=== PATIENT | female | born 1970 | race Caucasian/White ===

== ENCOUNTER 2019-05-13 19:28 | Emergency (ER) | payer MEDICAID ==
--- NOTE | 2019-05-13 20:20 | EDM.PDOC ---
ED HPI GENERAL MEDICAL PROBLEM - General Chief Complaint: Cardiovascular Problem Stated Complaint: PALPITATION,PASS OUT Time Seen by Provider: 05/13/19 20:15 Source of Information: Reports: Patient History Limitations: Reports: No Limitations - History of Present Illness INITIAL COMMENTS - FREE TEXT/NARRATIVE: 49 yo female who has had palpitations for 2 weeks or so. She saw Gael Penaloza who ordered a 48 hr monitor. Today, while seated,she experienced a syncopal event for 30 min,unwitnessed,prompting her to come in. Last week,the palpitations were associated with chest pain,and headache,but not this week. She has anxiety, depression and DM. Nol fever chills,no GI or urinary symptoms. - Related Data Allergies Allergy/AdvReac Type Severity Reaction Status Date / Time codeine Allergy Hives Verified 05/13/19 19:45 hydrocodone bitartrate Allergy Anaphylactic Verified 05/13/19 19:45 [From Lorcet ] Shock Tetanus Vaccines and Toxoid Allergy Cannot Verified 05/13/19 19:45 [Tetanus Vaccines & Toxoid] Remember Home Meds: Home Meds Citalopram [Citalopram HBr] 20 mg PO DAILY 05/13/19 [History] Gabapentin [Neurontin] 300 mg PO 08,12 05/13/19 [History] Gabapentin [Neurontin] 600 mg PO BEDTIME 05/13/19 [History] Insulin Glargine,Hum.Rec.Anlog [Basaglar Kwikpen U-100] 30 unit SQ DAILY [History] Mometasone/Formoterol [Dulera 200 MCG/5 MCG] 2 puff INH BID 05/13/19 [History] Orphenadrine [Norflex] 1 tab PO DAILY PRN 05/13/19 [History] Simvastatin 5 mg PO BEDTIME 05/13/19 [History] ED ROS GENERAL - Review of Systems Review Of Systems: ROS reveals no pertinent complaints other than HPI. ED EXAM, GENERAL - Physical Exam Exam: See Below Exam Limited By: No Limitations General Appearance: Alert, WD/WN, No Apparent Distress Ears: Normal External Exam, Normal Canal, Hearing Grossly Normal, Normal TMs Ear Exam: Bilateral Ear: Auricle Normal, Canal Normal, TM normal Head: Atraumatic Neck: Normal Inspection, Supple, Non-Tender, Full Range of Motion Respiratory/Chest: No Respiratory Distress Cardiovascular: Normal Peripheral Pulses, Regular Rate, Rhythm, No Edema, No JVD , No Murmur Neurological: Alert, Oriented, CN II-XII Intact, Normal Cognition Psychiatric: Normal Affect Skin Exam: Warm, Dry Lymphatic: No Adenopathy Course - Vital Signs Last Recorded V/S: Last Vital Signs Temp 98 F 05/13/19 19:35 Pulse Resp 16 05/13/19 20:45 BP 128/64 05/13/19 20:45 Pulse Ox 96 05/13/19 20:45 - Orders/Labs/Meds Orders: Active Orders 24 hr Category Date Time Status EKG Documentation Completion [RC] ASDIRECTED Care 05/13/19 19:49 Active EKG Documentation Completion [RC] ASDIRECTED Care 05/13/19 19:49 Active EKG 12 Lead [EK] Routine Ther 05/13/19 19:49 Ordered Labs: Laboratory Tests 05/13/19 05/13/19 05/13/19 Range/Units 20:05 20:05 20:05 WBC 7.1 (4.5-12.0) X10-3/uL RBC 4.48 (3.23-5.20) x10(6)uL Hgb 12.1 (11.5-15.5) g/dL Hct 37.0 (30.0-51.3) % MCV 82.6 (80-96) fL MCH 26.9 L (27.7-33.6) pg MCHC 32.6 (32.2-35.4) g/dL RDW 13.2 (11.5-15.5) % Plt Count 231 (125-369) X10(3)uL MPV 8.8 (7.4-10.4) fL Neut % (Auto) 55.3 (46-82) % Lymph % (Auto) 36.2 (13-37) % [place]gs % (Auto) 5.2 (4-12) % Eos % (Auto) 3 (1.0-5.0) % Baso % (Auto) 1 (0-2) % Neut # (Auto) 3.9 (1.6-8.3) # Lymph # (Auto) 2.6 (0.6-5.0) # [place]gs # (Auto) 0.4 (0.0-1.3) # Eos # (Auto) 0.2 (0.0-0.8) # Baso # (Auto) 0.0 (0.0-0.2) # Sodium 147 H (135-145) mmol/L Potassium 3.9 (3.5-5.3) mmol/L Chloride 107 (100-110) mmol/L Carbon Dioxide 30 (21-32) mmol/L BUN 11 (7-18) mg/dL Creatinine 0.8 (0.55-1.02) mg/dL Est Cr Clr Drug Dosing 85.81 mL/min Estimated GFR (MDRD) > 60 (>60) BUN/Creatinine Ratio 13.8 (9-20) Glucose 249 H (80-116) mg/dL Calcium 8.6 (8.6-10.2) mg/dL Total Bilirubin 0.3 (0.1-1.3) mg/dL AST 7 (5-25) IU/L ALT 17 (12-36) U/L Alkaline Phosphatase 87 (56-112) IU/L Troponin I < 0.017 L (<0.017-0.056) ng/mL Total Protein 6.7 (6.0-8.0) g/dL Albumin 3.0 L (3.5-5.2) g/dL Globulin 3.7 g/dL Albumin/Globulin Ratio 0.8 Departure - Departure Time of Disposition: 21:15 Disposition: Home, Self-Care 01 Condition: Good Clinical Impression: Palpitations, Syncope Instructions: Palpitations, Syncope Referrals: Gael Penaloza PA [Primary Care Provider] - Forms: ED Department Discharge Care Plan Goals: Follow up on Wednesday with your regular Dr. - Problem List & Annotations (1) Syncope SNOMED Code(s): 306069877 Code(s): R55 - SYNCOPE AND COLLAPSE Status: Acute Current Visit: Yes Qualifiers: Encounter type: initial encounter (2) Palpitations SNOMED Code(s): 87049390 Code(s): R00.2 - PALPITATIONS Status: Acute Current Visit: Yes - Problem List Review Problem List Initiated/Reviewed/Updated: Yes - My Orders Last 24 Hours: My Active Orders 05/13/19 19:49 EKG Documentation Completion [RC] ASDIRECTED EKG Documentation Completion [RC] ASDIRECTED EKG 12 Lead [EK] Routine - Assessment/Plan Last 24 Hours: My Active Orders 05/13/19 19:49 EKG Documentation Completion [RC] ASDIRECTED EKG Documentation Completion [RC] ASDIRECTED EKG 12 Lead [EK] Routine Plan: Vital signs remained stable through out her stay. Cardiac work up negative. EKG was neg. I have advised her to follow up with PCP on Wednesday. She has a stress test on . Return to ED with any worsening symptoms
== END 2019-05-13 21:00 | disposition home or self-care (01) ==
LOC: FB.ED 19:28
DX: R55 Syncope and collapse (principal); R00.2 Palpitations; Z88.8 Allergy status to other drugs, medicaments and biological substances; Z88.5 Allergy status to narcotic agent; Z79.899 Other long term (current) drug therapy
CPT/HCPCS: 36415; 80053; 84484; 85025; 93005; 99285-25

== ENCOUNTER 2019-05-29 13:49 | Emergency (ER) | payer MEDICAID ==
[2019-05-29] MEDS ORDERED: Aspirin 325 MG Tab.EC PO ONE (14:12)
--- NOTE | 2019-05-29 14:38 | EDM.PDOC ---
ED HPI GENERAL MEDICAL PROBLEM - General Stated Complaint: HEART PALPATATIONS PAIN Time Seen by Provider: 05/29/19 14:34 Source of Information: Reports: Patient, Old Records History Limitations: Reports: No Limitations - History of Present Illness INITIAL COMMENTS - FREE TEXT/NARRATIVE: Patient is a 49 yo WF who presented to the ED because of palpitations. She denies any dyspnea,N/V or diaphoresis. ions which she started last night. She felt flushed and dizzy. She just had a cardiac stent sone on 05/24/19 in [facility] which went well. She also c/o pleuritic chest pain whic is 3/10, and worse with breathing,coughing and movements. Duration: Minutes: - Related Data Allergies Allergy/AdvReac Type Severity Reaction Status Date / Time codeine Allergy Hives Verified 05/13/19 19:45 hydrocodone bitartrate Allergy Anaphylactic Verified 05/13/19 19:45 [From Lorcet ] Shock Tetanus Vaccines and Toxoid Allergy Cannot Verified 05/13/19 19:45 [Tetanus Vaccines & Toxoid] Remember Home Meds: Home Meds Citalopram [Citalopram HBr] 20 mg PO DAILY 05/13/19 [History] Gabapentin [Neurontin] 300 mg PO ,12 05/13/19 [History] Gabapentin [Neurontin] 600 mg PO BEDTIME 05/13/19 [History] Insulin Glargine,Hum.Rec.Anlog [Basaglar Kwikpen U-100] 30 unit SQ DAILY [History] Mometasone/Formoterol [Dulera 200 MCG/5 MCG] 2 puff INH BID 05/13/19 [History] Orphenadrine [Norflex] 1 tab PO DAILY PRN 05/13/19 [History] Simvastatin 5 mg PO BEDTIME 05/13/19 [History] Admelog 2 units SQ ASDIRECTED 05/29/19 [History] Naproxen 500 gm MC BID 7 Days #30 powder 05/29/19 [Rx] Past Medical History Cardiovascular History: Reports: High Cholesterol, Hypertension Psychiatric History: Reports: Depression, Suicide Attempt Endocrine/Metabolic History: Reports: Diabetes, Type II Social & Family History - Caffeine Use Caffeine Use: Reports: None ED ROS GENERAL - Review of Systems Review Of Systems: See Below Constitutional: Reports: No Symptoms HEENT: Reports: No Symptoms Respiratory: Reports: No Symptoms Cardiovascular: Reports: Chest Pain, Palpitations Endocrine: Reports: No Symptoms GI/Abdominal: Reports: No Symptoms : Reports: No Symptoms Musculoskeletal: Reports: No Symptoms ED EXAM, GENERAL - Physical Exam Exam: See Below Exam Limited By: No Limitations General Appearance: Alert, No Apparent Distress, Anxious Eye Exam: Bilateral Eye: PERRL Ears: Normal External Exam, Normal Canal Ear Exam: Bilateral Ear: Auricle Normal, Canal Normal, TM normal Nose: Normal Inspection, Normal Mucosa Throat/Mouth: Normal Inspection, Normal Lips, Normal Oropharynx Head: Atraumatic, Normocephalic Neck: Normal Inspection, Supple, Non-Tender Respiratory/Chest: No Respiratory Distress, Lungs Clear, Normal Breath Sounds, No Accessory Muscle Use, Chest Non-Tender Cardiovascular: Normal Peripheral Pulses, Regular Rate, Rhythm, No Edema, No JVD , No Murmur, No Rub GI/Abdominal: Normal Bowel Sounds, Soft, Non-Tender, No Organomegaly (Female) Exam: Deferred Rectal (Female) Exam: Deferred Back Exam: Normal Inspection, Full Range of Motion EKG INTERPRETATION [place]: Normal P-Wave: Present ST-T: Depressed QT: Normal Course - Vital Signs Text/Narrative:: labs and EKG discussed with patient. EKG-NSR Troponin-EKG Calcium-elevated @14.4 Last Recorded V/S: Last Vital Signs Temp 36.4 C 05/29/19 13:50 Pulse Resp BP Pulse Ox - Orders/Labs/Meds Orders: Active Orders 24 hr Category Date Time Status EKG Documentation Completion [RC] ASDIRECTED Care 05/29/19 14:11 Active CBC WITH AUTO DIFF [HEME] Stat Lab 05/29/19 14:35 Received EKG 12 Lead [EK] Routine Ther 05/29/19 14:10 Ordered Labs: Laboratory Tests 05/29/19 05/29/19 Range/Units 14:35 14:35 Sodium 141 (135-145) mmol/L Potassium 4.0 (3.5-5.3) mmol/L Chloride 104 (100-110) mmol/L Carbon Dioxide 9 L* (21-32) mmol/L BUN 12 (7-18) mg/dL Creatinine 0.7 (0.55-1.02) mg/dL Est Cr Clr Drug Dosing TNP Estimated GFR (MDRD) > 60 (>60) BUN/Creatinine Ratio 17.1 (9-20) Glucose 143 H D (80-116) mg/dL Calcium 14.4 H* D (8.6-10.2) mg/dL Troponin I < 0.017 L (<0.017-0.056) ng/mL Meds: Medications Discontinued Medications Generic Name Dose Route Start Last Admin Trade Name Suresh PRN Reason Stop Dose Admin Aspirin 325 mg 05/29/19 14:12 05/29/19 14:57 Ecotrin PO 05/29/19 14:13 325 mg ONETIME ONE Administration Departure - Departure Time of Disposition: 16:10 Disposition: Home, Self-Care 01 Condition: Good Clinical Impression: Palpitations Prescriptions: Naproxen 500 gm MC BID 7 Days #30 powder Instructions: Nonspecific Chest Pain, [id number] Referrals: Gael Penaloza PA [Primary Care Provider] - Forms: ED Department Discharge Additional Instructions: None Take your naproxen 500 mg twice daily for 7 days 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 meclizine 25-50 mg every 6 hours as needed for vertigo - Problem List & Annotations (1) Palpitations SNOMED Code(s): 33944624 Code(s): R00.2 - PALPITATIONS Status: Chronic Current Visit: No - Problem List Review Problem List Initiated/Reviewed/Updated: Yes - My Orders Last 24 Hours: My Active Orders 05/29/19 14:10 EKG 12 Lead [EK] Routine 05/29/19 14:11 EKG Documentation Completion [RC] ASDIRECTED 05/29/19 14:35 CBC WITH AUTO DIFF [HEME] Stat - Assessment/Plan Last 24 Hours: My Active Orders 05/29/19 14:10 EKG 12 Lead [EK] Routine 05/29/19 14:11 EKG Documentation Completion [RC] ASDIRECTED 05/29/19 14:35 CBC WITH AUTO DIFF [HEME] Stat
== END 2019-05-29 16:30 | disposition home or self-care (01) ==
LOC: FB.ED 13:49
DX: R00.2 Palpitations (principal); E78.00 Pure hypercholesterolemia, unspecified; I10 Essential (primary) hypertension; F32.9 Major depressive disorder, single episode, unspecified; E11.9 Type 2 diabetes mellitus without complications; Z88.5 Allergy status to narcotic agent; Z88.7 Allergy status to serum and vaccine; Z79.899 Other long term (current) drug therapy; Z79.4 Long term (current) use of insulin
CPT/HCPCS: 36415; 80048; 84484; 85025; 93005; 99285-25; A9270-GY